=== PATIENT | female | born 1970 | race African-American/Black ===

== ENCOUNTER 2019-02-11 22:14 | Emergency (ER) | payer BC ==
[~2019-02-11] VITALS: Ht 175.3 cm; Wt 110.0 kg
[~2019-02-11 22:14] MED LIST: AMOXICILLIN500 MG PO; HYDROCHLOROT25 MG OR; HYZAAR1 TAB PO; LORTAB 5 OR; MEDDOSEPAK PO; NORVASC10 MG OR; OMEPRAZOLE20 M2 PO; ROBITUSSIN AC10 ML PO; SIMVASTATIN40 MG PO; TRAMADOL HCL50 MG PO; WELLBUTRIN150 MG OR
[2019-02-11] MEDS ORDERED: STERAPRED DS10 MG PO (23:02)
[2019-02-11 23:10] VITALS: BP 134/96
== END 2019-02-11 23:20 | disposition home or self-care (01) | DRG 156 ==
LOC: ED 22:14
DX: H92.02 Otalgia, left ear (principal); J02.9 Acute pharyngitis, unspecified; I10 Essential (primary) hypertension

== ENCOUNTER 2020-02-18 15:59 | Inpatient (IN) | payer BC ==
[~2020-02-18] VITALS: Ht 175.3 cm; Wt 137.4 kg
[~2020-02-18 15:59] MED LIST changes: +STERAPRED DS10 MG PO
--- NOTE | 2020-02-18 15:59 | NUR ---
PATIENT TO ROOM 15 FOR BEDSIDE TRIEAGE AND PHYSICIAN AT BEDSIDE
--- NOTE | 2020-02-18 16:30 | NUR ---
PT RESTING ON STRETCHER; SHALLOW LABORED BREATHING NOTED; O2 NC IN PLACE; PT ADVISED OF POC; PT VERBALIZES UNDERSTANDING; DENIES ANY OTHER NEEDS AT THIS TIME
[2020-02-18 17:23] LABS: HEMATOCRIT 42.4 % (37.0-47.0); HEMOGLOBIN 12.7 g/dl (12.0-16.0); IMMATURE GRANULOCYTES 0.5 % (0.0-5.0); MEAN CELL VOLUME 86.9 fL CALC (80.0-100.0); NEUT# 3.77 thou/uL (2.00-7.15); RED BLOOD COUNT 4.88 mill/uL (4.20-5.60); RED CELL DISTRI WIDTH 13.8 % (11.5-15.5)
--- NOTE | 2020-02-18 17:30 | NUR ---
PT RESTING ON STRETCHER; NO S/S OF DISTRESS NOTED; IV ANTIBIOTICS INFUSING; DRY COUGH NOTED; PT DENIES ANY NEEDS AT THIS TIME; WILL CONTINUE TO MONITOR
[2020-02-18 17:32] LABS: HCG SERUM/URINE (NEG/POS) NEGATIVE (NEGATIVE)
[2020-02-18 17:34] LABS: ALBUMIN 4.1 g/dL (3.2-5.0); ALKALINE PHOSPHATASE 58 u/l (38-126); ANION GAP 12 (6-22 (CALC)); BILIRUBIN, TOTAL 0.6 mg/dL (0.0-1.4); BUN 19 mg/dL (7-17); BUN/CREATININE RATIO 15 (12-20 (CALC)); C-REACTIVE PROTEIN 7.1 mg/dL (0-0.9); CARBON DIOXIDE 31 mmol/l (22-30); CHLORIDE 92 mmol/l (95-108); CREATININE 1.3 mg/dL (0.5-1.0); GFR 43 ML/MIN (>=60 (CALC)); GFR FOR AFR.AMER. 52 ML/MIN (>=60 (CALC)); LIPASE 104 u/l (23-300); SGOT/AST 42 u/l (14-36); TOTAL PROTEIN 8.4 g/dL (6.3-8.2)
[2020-02-18 17:40] LABS: SODIUM 131 mmol/l (137-146)
--- NOTE | 2020-02-18 18:30 | NUR ---
PT C/O CONTINUED COUGH AND REQUESTING SOMETHING TO HELP; MD NOTIFIED ; VSS; WILL CONTINUE TO MONITOR
--- NOTE | 2020-02-18 19:00 | NUR ---
REPORT TO SHADI YEAGER
--- NOTE | 2020-02-18 21:50 | NUR ---
PT ADVISED OF BEING AN ER HOLD. PT NOT HAPPY. ADVISED THAT WE WOULD BE BRINGING DOWN A HOSPITAL BE. RESTING. NAD.
--- NOTE | 2020-02-18 22:18 | NUR ---
DR LOUISE NOTIFIED OF REQUEST FOR COUGH MEDICATION. HOSPITAL BED BROUGHT DOWN FROM UPSTAIRS FOR PT COMFORT.
--- NOTE | 2020-02-18 23:10 | NUR ---
PT WAS MEDICATED WITH COUGH SYRUP/TYELNOL. GIVEN GINGERALE/WATER. LIGHTS DIMMED/IVF UP. CM/PULSE OX/NIBP. BLANKETS AND TWO PILLOWS GIVEN.
--- NOTE | 2020-02-19 01:09 | NUR ---
PT RESTING. UP TO BSC TO VOID. NAD.
--- NOTE | 2020-02-19 01:33 | NUR ---
PT UP TO BSC TO VOID. GOWN AND PILLOW CASES CHANGED DO TO SWEAT.
--- NOTE | 2020-02-19 03:23 | NUR ---
PT SLEEPING. FEELS MUCH BETTER. "BEST SLEEP I GOT IN YEARS." VSS.
--- NOTE | 2020-02-19 04:57 | NUR ---
PT UP TO BSC. COUGHING SPELL. ASSISTED WITH GOWN AND PILLOW CASE CHANGES PT SWEAT THROUGH AGAIN. PT GIVEN COUGH MED. CRANBERRY JUICE.
[2020-02-19 05:26] LABS: URINE BILIRUBIN - DIPSTICK NEGATIVE (NEGATIVE); URINE BLOOD DIPSTICK NEGATIVE (NEGATIVE); URINE COLOR YELLOW; URINE GLUCOSE - DIPSTICK NEGATIVE (NEGATIVE); URINE KETONE NEGATIVE (NEGATIVE); URINE LEUK ESTERASE NEGATIVE (NEGATIVE); URINE NITRITE - DIPSTICK NEGATIVE (Negative); URINE PROTEIN - DIPSTICK 100 mg/dL (NEG-TRACE); URINE SPECIFIC GRAVITY 1.015
--- NOTE | 2020-02-19 05:30 | NUR ---
PT SLEEPING. NO COUGHING. RESP EASY REG. VSS.
[2020-02-19 05:33] LABS: URINE BACTERIA MODERATE hpf; URINE EPITHELIAL CELLS FEW EPI/hpf (0-FEW)
[2020-02-19 05:45] LABS: HEMATOCRIT 40.4 % (37.0-47.0); HEMOGLOBIN 12.2 g/dl (12.0-16.0); IMMATURE GRANULOCYTES 0.6 % (0.0-5.0); MEAN CELL VOLUME 86.9 fL CALC (80.0-100.0); MEAN CORPUSCULAR HGB 26.2 pG CALC (26.0-32.0); MEAN CORPUSCULAR HGB CONC 30.2 g/dL CAL (32.0-36.0); NEUT# 3.34 thou/uL (2.00-7.15); RED BLOOD COUNT 4.65 mill/uL (4.20-5.60); RED CELL DISTRI WIDTH 14.2 % (11.5-15.5)
[2020-02-19 05:58] LABS: ALBUMIN 3.4 g/dL (3.2-5.0); ALKALINE PHOSPHATASE 52 u/l (38-126); ANION GAP 10 (6-22 (CALC)); BILIRUBIN, TOTAL 0.5 mg/dL (0.0-1.4); BUN 18 mg/dL (7-17); BUN/CREATININE RATIO 17 (12-20 (CALC)); C-REACTIVE PROTEIN 6.4 mg/dL (0-0.9); CARBON DIOXIDE 31 mmol/l (22-30); CHLORIDE 97 mmol/l (95-108); CREATININE 1.1 mg/dL (0.5-1.0); GFR 53 ML/MIN (>=60 (CALC)); GFR FOR AFR.AMER. > 60 ML/MIN (>=60 (CALC)); POTASSIUM 4.4 mmol/l (3.5-5.1); SGOT/AST 32 u/l (14-36); SODIUM 133 mmol/l (137-146); TOTAL PROTEIN 6.9 g/dL (6.3-8.2)
--- NOTE | 2020-02-19 06:58 | NUR ---
REPORT TO SHADI CLEVELAND.
--- NOTE | 2020-02-19 07:06 | NUR ---
REPORT TO SHADI VILLA
[2020-02-19 07:29] VITALS: BP 111/79
--- NOTE | 2020-02-19 07:36 | NUR ---
The patient is resting at this time. I updated her about the room status. I informed her that breakfast would be coming. She sts that she did not need anything at this time.
--- NOTE | 2020-02-19 08:44 | NUR ---
The patient ate breakfast. no issues at this time.
--- NOTE | 2020-02-19 09:41 | NUR ---
PATIENT READY TO BE TRANSFERRED TO [facility], WAITING FOR JUSTINO TO GIVE REPORT TO.
--- NOTE | 2020-02-19 10:02 | NUR ---
PT ARRIVED FROM ER VIA WC WITH STAFF. O2 IN PLACE. IV SITE IS FREE FROM REDNESS OR EDEMA. TELE MONITOR IN PLACE. CONTINUE TO OBSERVE AND MONITOR.
[2020-02-19 10:33] VITALS: BP 124/82
--- NOTE | 2020-02-19 12:50 | NUR ---
PT IS RELAXING IN THE ROOM. IV SITE IS FREE FROM REDNESS OR EDEMA.
[2020-02-19 15:21] VITALS: BP 114/66
--- NOTE | 2020-02-19 16:40 | NUR ---
PT IS RELAXING IN BED WITH NO DISTRESS NOTED. IV SITE IS FREE FROM REDNESS OR EDEAM. CONITNUE TO OBSERVE AND MONITOR.
--- NOTE | 2020-02-19 16:41 | NUR ---
PTS C PAP HAS ARRIVED. WILL BE IN HER ROOM. FROM FAMILY.
--- NOTE | 2020-02-19 19:00 | NUR ---
RECEIVED REPORT FROM NURSE BADILLO PATIENT RESTING IN BED WATCHING TV, HOOKED TO O2 @ 2LPM VIA NC CALL LIGHT AT REACH.
[2020-02-19 19:30] VITALS: BP 112/81
--- NOTE | 2020-02-19 21:00 | NUR ---
PATIENT ALERT ORIENTED ABLE TO MAKE NEEDS KNOWN, WITH AN ONGOING IV NS @ 100CC/HR INFUSING WELL ON LFA REMAINS ON TELE SR 73, DENIES PAIN, C/O OF COUGH NON PRODUCTIVE, CALL LIGHT AT REACH.
[2020-02-19 23:30] VITALS: BP 115/75
--- NOTE | 2020-02-20 | NUR ---
PATIENT APPEARS TO BE SLEEPING WITH EYES CLOSED WEARING CPAP BREATHING UNLABORED, CALL LIGHT AT REACH.
[2020-02-20 03:30] VITALS: BP 110/77
--- NOTE | 2020-02-20 04:45 | NUR ---
PATIENT ASLEEP AT THIS TIME, WEARS CPAP, BREATHING UNLABORED, CALL LIGHT AT REACH.
[2020-02-20 05:51] LABS: HEMOGLOBIN 11.2 g/dl (12.0-16.0); MEAN CELL VOLUME 89.4 fL CALC (80.0-100.0); MEAN CORPUSCULAR HGB 27.1 pG CALC (26.0-32.0); MEAN CORPUSCULAR HGB CONC 30.3 g/dL CAL (32.0-36.0); RED BLOOD COUNT 4.14 mill/uL (4.20-5.60); RED CELL DISTRI WIDTH 14.1 % (11.5-15.5)
[2020-02-20 06:16] LABS: ANION GAP 9 (6-22 (CALC)); BUN 15 mg/dL (7-17); BUN/CREATININE RATIO 18 (12-20 (CALC)); CARBON DIOXIDE 28 mmol/l (22-30); CHLORIDE 101 mmol/l (95-108); CREATININE 0.9 mg/dL (0.5-1.0); GFR > 60 ML/MIN (>=60 (CALC)); GFR FOR AFR.AMER. > 60 ML/MIN (>=60 (CALC)); MAGNESIUM 2.2 mg/dL (1.6-2.3); POTASSIUM 4.6 mmol/l (3.5-5.1); SODIUM 134 mmol/l (137-146)
[2020-02-20 08:37] VITALS: BP 107/77
--- NOTE | 2020-02-20 08:37 | NUR ---
RECIEVED REPORT FROM SHADI HODGE. PT RESTING IN SEMI FOWLERS POSITION UPON ENTERING ROOM. INTRODUCED SELF TO PT AND DISCUSSED POC. ASSESSMENT AND VITALS COMPLETED AT THIS TIME. BP 107/77, HR 75, O2 97% ON ROOM AIR. RESPIRATIONS ARE EVEN AND UNLABORED. LUNG SOUNDS ARE CLEAR. PT PRESENT WITH NON PRODUCTIVE COOUGH, ROBTIUSSIN TO BE ADMINISTERED. HEART RHYTHM IS NORMAL WITH TELE IN PLACE.BOWEL SOUNDS ARE ACTIVE IN ALL QUDRANTS WITH NO TENDERNESS, LAST REPORTED BM 02/18/20. RADIAL AND PEDAL PULSES ARE STRONG WITH NORMAL CAPILLARY REFILL. #22 IN LFA RUNNING WITH FLUIDS @100 ML ORDERED, SITE APPEARS HEALTHY AND PATENT. PT DENIES OF ANY PAIN OR DISCOMFORTS AT THIS TIME. ALL SAFTEY PRECAUTIONS ARE IN PLACE WITH CALL LIGTH IN REACH. WILL CONTINUE TO MONITOR.
[2020-02-20 12:00] VITALS: BP 100/73
--- NOTE | 2020-02-20 12:48 | NUR ---
PT SLEEPING IN LOWERS POSITION. RESPIRATIONS ARE EVEN AND UNLABORED WITH NO SIGNS OF DISTRESS.NO SIGNS FO ANY PAIN OR NEEDS AT THSI TIME.A L SAFETY PRECAUTIONS ARE IN PLACE WITH CALL LIGTH INREACH. WILL CONTINUE TO MONITOR
--- NOTE | 2020-02-20 16:02 | NUR ---
PT RESTING IN HIGH FOWLERS POSITION WATCHING TV. RESPIRATIONS ARE EVEN AND UNLABORED WITH NO SIGNS OF DISTRESS. PT DENIES ANY PAIN OR DISCOMFORTS AT THIS. ALL SAFTEY RPECAUTIONS ARE IN PLACE WITH CALL LIGHT IN REACH.
--- NOTE | 2020-02-20 19:06 | NUR ---
REPORT FROM GONZALO KEY. PT NOTED RESTING IN BED. NO APPARENT DISTRESS NOTED. IV SITE APPEARS HEALTHY. PT DENIES ANY PAIN OR DISCOMFORT. NO APPARENT RESPIRATORY DISTRESS NOTED, ON RA HAS O2 PRN AT BEDSIDE. ENERGY DERIVATIVES TRADER IN PLACE. DISCUSSED POC. PT VERBALIZED UNDERSTANDING. CALL LIGHT WITHIN REACH. WILL CONTINUE TO MONITOR.
--- NOTE | 2020-02-20 23:18 | NUR ---
COUGH MEDICINE ADMINISTERED. PT DENIES ANY OTHER WANTS OR NEEDS. PT SELF APPLIED HOME CPAP MACHINE. CALL LIGHT WITHIN REACH. WILL CONTINUE TO MONITOR.
[2020-02-21] VITALS (7 sets, daily range): BP systolic 97–120; BP diastolic 52–77
--- NOTE | 2020-02-21 03:11 | NUR ---
PT RESTING IN BED WITH EYES CLOSED. NO APPARENT DISTRESS NOTED. RESPIRATIONS EVEN AND UNLABORED, PT WEARING HOME CPAP MACHINE. ELEMENT WINDING MACHINE TENDER IN PLACE. IV SITES APPEAR HEALTHY. CALL LIGHT WITHIN REACH. WILL CONTINUE TO MONITOR.
[2020-02-21 05:37] LABS: HEMATOCRIT 35.8 % (37.0-47.0); IMMATURE GRANULOCYTES 0.9 % (0.0-5.0); MEAN CELL VOLUME 89.5 fL CALC (80.0-100.0); MEAN CORPUSCULAR HGB 27.5 pG CALC (26.0-32.0); MEAN CORPUSCULAR HGB CONC 30.7 g/dL CAL (32.0-36.0); NEUT# 2.89 thou/uL (2.00-7.15); RED CELL DISTRI WIDTH 14.2 % (11.5-15.5)
[2020-02-21 06:10] LABS: ALBUMIN 3.1 g/dL (3.2-5.0); ALKALINE PHOSPHATASE 48 u/l (38-126); ANION GAP 9 (6-22 (CALC)); BILIRUBIN, TOTAL 0.3 mg/dL (0.0-1.4); BUN 16 mg/dL (7-17); BUN/CREATININE RATIO 17 (12-20 (CALC)); C-REACTIVE PROTEIN 2.7 mg/dL (0-0.9); CARBON DIOXIDE 28 mmol/l (22-30); CHLORIDE 101 mmol/l (95-108); CREATININE 0.9 mg/dL (0.5-1.0); GFR > 60 ML/MIN (>=60 (CALC)); GFR FOR AFR.AMER. > 60 ML/MIN (>=60 (CALC)); POTASSIUM 4.4 mmol/l (3.5-5.1); SGOT/AST 26 u/l (14-36); SODIUM 134 mmol/l (137-146); TOTAL PROTEIN 6.5 g/dL (6.3-8.2)
--- NOTE | 2020-02-21 07:44 | NUR ---
PT SITTING IN BED. A&O X3. NO DISTRESS NOTED. PT REPORTS TO BE FEELING WEAK WHEN SHE ATTEMPTS TO AMBULATE TO THE BATHROOM. COUGH NOTED. O2 VIA 2L NC @ BEDSIDE IF NEEDED. PT CURRENTLY ON RA. NO OTHER NEEDS AT THIS TIME. PT ENCOURAGED TO EAT DUE TO POOR INTAKE. ASSESSMENT COMPLETED. DISCUSSED POC. ISOLATION PRECAUTIONS IN PLACE. CALL LIGHT IN REACH. CONTINUE TO MONITOR.
--- NOTE | 2020-02-21 12:52 | NUR ---
PT SITTING IN BED WATCHING TV. NO DISTRESS OR NEEDS AT THIS TIME. CALL LIGHT IN REACH. CONTINUE TO MONITOR.
--- NOTE | 2020-02-21 19:02 | NUR ---
REPORT FROM ARSENIO KEY. PT NOTED RESTING IN BED. NO APPARENT DISTRESS NOTED. IV SITE APPEARS HEALTHY. PT DENIES ANY PAIN OR DISCOMFORT. NO APPARENT RESPIRATORY DISTRESS NOTED, ON RA HAS O2 PRN AT BEDSIDE. CLIENT DELIVERY SPECIALIST IN PLACE. DISCUSSED POC. PT VERBALIZED UNDERSTANDING. CALL LIGHT WITHIN REACH. WILL CONTINUE TO MONITOR.
--- NOTE | 2020-02-21 22:17 | NUR ---
IV ABT INFUSION COMPLETE. IV SITE FLUSHED AND SL. COUGH MEDICINE ADMINISTERED AT THIS TIME. PT DENIES ANY CURRENT WANTS OR NEEDS. PT APPLIED HOME CPAP MACHINE. CALL LIGHT WITHIN REACH. WILL CONTINUE TO MONITOR.
--- NOTE | 2020-02-22 00:02 | NUR ---
PT RESTING IN BED WITH EYES CLOSED. HOME CPAP MACHINE ON. NO APPARENT DISTRESS NOTED. NO CURRENT WANTS OR NEEDS. VSS. CALL LIGHT WITHIN REACH. WILL CONTINUE TO MONITOR.
[2020-02-22 04:18] VITALS: BP 118/79
[2020-02-22 07:52] VITALS: BP 96/65
--- NOTE | 2020-02-22 07:52 | NUR ---
PT SITTING IN BED. A&O X3. NO DISTRESS NOTED. PT CURRENTLY ON RA. REPORTS TO BE FEELING BETTER TODAY. NO OTHER NEEDS AT THIS TIME. ASSESSMENT COMPLETED. DISCUSSED POC. ISOLATION PRECUATIONS IN PLACE. CALL LIGHT IN REACH. CONTINUE TO MONITOR.
[2020-02-22 10:00] VITALS: BP 109/73
--- NOTE | 2020-02-22 11:22 | NUR ---
PT AMBULATING ROOM WITH O2 @ 93% ROOM AIR. RESULTS COMMUNICATED WITH ESTELA
--- NOTE | 2020-02-22 12:35 | NUR ---
PT SITTING IN BED WATCHING TV. NO DISTRESS OR NEEDS AT THIS TIME. CALL LIGHT IN REACH. CONTINUE TO MONITOR.
[2020-02-22 15:00] VITALS: BP 116/73
--- NOTE | 2020-02-22 17:52 | NUR ---
PT SITTING IN BED. NO DISTRESS OR NEEDS AT THIS TIME. CALL LIGHT IN REACH. COTNINUE TO MONITOR.
[2020-02-22 19:15] VITALS: BP 109/62
--- NOTE | 2020-02-22 20:02 | NUR ---
REPORT FROM ARSENIO KEY. PT NOTED RESTING IN BED. NO APPARENT DISTRESS NOTED. IV SITE APPEARS HEALTHY. PT DENIES ANY PAIN OR DISCOMFORT. NO APPARENT RESPIRATORY DISTRESS NOTED OVERSEER KOSHER KITCHEN IN PLACE. DISCUSSED POC. PT VERBALIZED UNDERSTANDING. CALL LIGHT WITHIN REACH. WILL CONTINUE TO MONITOR.
[2020-02-23 00:24] VITALS: BP 108/66
--- NOTE | 2020-02-23 00:33 | NUR ---
PT RESTING IN BED. NO APPARENT DISTRESS NOTED. ALERT AND ORIENTED X3. PT DENIES ANY PAIN OR DISCOMFORT. CALL LIGHT WITHIN REACH. WILL CONTINUE TO MONITOR.
--- NOTE | 2020-02-23 04:17 | NUR ---
PT RESTING IN BED WITH EYES CLOSED. NO APPARENT DISTRESS NOTED. RESPIRATIONS EVEN AND UNLABORED. CALL LIGHT WITHIN REACH. WILL CONTINUE TO MONITOR.
[2020-02-23 04:31] VITALS: BP 114/65
[2020-02-23 08:13] VITALS: BP 124/77
--- NOTE | 2020-02-23 08:13 | NUR ---
PT SITTING IN BED WATCHING TV. A&O X3. NO DISTRESS NOTED. PT REPORTS TO BE FEELING A LITTLE BETTER THAN YESTERDAY. PT CURRENTLY ON RA. NO OTHER NEEDS AT THIS TIME. ASSESSMENT COMPLETED. DISCUSSED POC. ISOLATION PRECAUTIONS IN PLACE. CALL LIGHT IN REACH. CONTINUE TO MONITOR.
[2020-02-23 10:30] VITALS: BP 98/63
[2020-02-23 10:50] LABS: HEMATOCRIT 37.1 % (37.0-47.0); HEMOGLOBIN 11.2 g/dl (12.0-16.0); IMMATURE GRANULOCYTES 1.8 % (0.0-5.0); MEAN CELL VOLUME 89.6 fL CALC (80.0-100.0); MEAN CORPUSCULAR HGB 27.1 pG CALC (26.0-32.0); MEAN CORPUSCULAR HGB CONC 30.2 g/dL CAL (32.0-36.0); NEUT# 5.18 thou/uL (2.00-7.15); RED BLOOD COUNT 4.14 mill/uL (4.20-5.60); RED CELL DISTRI WIDTH 14.1 % (11.5-15.5)
[2020-02-23 11:25] LABS: ALBUMIN 3.3 g/dL (3.2-5.0); ALKALINE PHOSPHATASE 47 u/l (38-126); ANION GAP 7 (6-22 (CALC)); BILIRUBIN, TOTAL 0.3 mg/dL (0.0-1.4); BUN 18 mg/dL (7-17); BUN/CREATININE RATIO 19 (12-20 (CALC)); C-REACTIVE PROTEIN 0.9 mg/dL (0-0.9); CARBON DIOXIDE 30 mmol/l (22-30); CHLORIDE 102 mmol/l (95-108); CREATININE 0.9 mg/dL (0.5-1.0); GFR > 60 ML/MIN (>=60 (CALC)); GFR FOR AFR.AMER. > 60 ML/MIN (>=60 (CALC)); POTASSIUM 4.2 mmol/l (3.5-5.1); SGOT/AST 45 u/l (14-36); SODIUM 135 mmol/l (137-146); TOTAL PROTEIN 6.7 g/dL (6.3-8.2)
--- NOTE | 2020-02-23 12:22 | NUR ---
PT SITTING IN BED. NO DISTRESS OR NEEDS AT THIS TIME. CALL LIGHT IN REACH. CONTINUE TO MONITOR.
[2020-02-23 15:00] VITALS: BP 110/70
--- NOTE | 2020-02-23 17:38 | NUR ---
PT SITTING IN BED. NO DISTRESS OR NEEDS AT THIS TIME. CALL LIGHT IN REACH. CONTINUE TO MONITOR.
--- NOTE | 2020-02-23 19:18 | NUR ---
1918-Pt assessment completed. Pt is very pleasant but has voiced concerns about life after discharge. I assured her I would put her concerns in my notes for the doctor to read. She says her cough is dry at times. But states her SOB is getting better. Bed low and locked. Call light and phone within reach. Pt stable. Will continue to monitor.
[2020-02-23 19:19] VITALS: BP 119/70
--- NOTE | 2020-02-23 23:18 | NUR ---
2318-Assisted pt with CPAP machine, cleaned it and placed water pt brought from home in it. Pt denies pain or discomfort. No s/s of distress. Bed low and locked. Call light and phone within reach. Pt stable. Will continue to monitor.
[2020-02-24] VITALS (7 sets, daily range): BP systolic 96–123; BP diastolic 62–77
--- NOTE | 2020-02-24 03:10 | NUR ---
0310-Pt lying in bed, asleep. No s/s of distress. Bed low and locked. Call light and phone within reach. Pt stable. Will continue to monitor.
--- NOTE | 2020-02-24 08:15 | NUR ---
ASSESSMENT IS COMPLTED: IV SITE IS FREE FROM REDNESS OR EDEMA. HR IS REG,PULSES ARE STRONG X4, ABD IS SOFT WITH ACTIVE BS. BREATH SOUNDS ARE CLEAR,TELE MONITOR IN PLACE. CONTINUE TO OBSERVE AND MONITOR.
--- NOTE | 2020-02-24 12:45 | NUR ---
PT IS SITTING IN THE CHAIR AND ON THE SIDE OF THE BED. HAD A SHOWER. NO DISTRESS NOTED. IV SITE IS FREE FROM REDNESS OR EDEMA.
--- NOTE | 2020-02-24 16:30 | NUR ---
PT IS RELAXING IN BED WITH NO DISTRESS NOTED. IV SITE IS FREE FROM REDNESS OR EDEMA.
--- NOTE | 2020-02-24 19:00 | NUR ---
RECEIVE REPORT FROM NURSE BADILLO PATIENT RESTING IN BED, HIGH FOWLERS BREATHING SHALLOW UNLABORED CALL LIGHT AT REACH.
--- NOTE | 2020-02-24 20:34 | NUR ---
PATIENT ALERT ORIENETED ABLE TO MAKE NEEDS KNONW, WITH SALINE LOCK ON LAC G20 PATENT FLUSHES WELL REMAINJS ON TELE LBM 8/, DENIES PAIN OR DISCOMFORTS, OCCASIONAL NON PRODUCTIVE COUGH PER PATEINT, LUNG SOUNDS DIMINISHED BOTH LUNG RUST, CALL LIGHT AT REACH.
--- NOTE | 2020-02-25 | NUR ---
PATIENT CURRENTLY WATCHING TV, BREATHING SHALLOW UNLABORED, NOT IN DISTRESS CALL LIGHT AT REACH.
[2020-02-25 02:45] VITALS: BP 114/68
--- NOTE | 2020-02-25 04:33 | NUR ---
PATIENT RESTING IN BED, EASY TO AROUSED, DENIES PAIN DISCOMFORTS BREATHING SHALLOW UNLABORED, CALL LIGHT AT REACH.
--- NOTE | 2020-02-25 07:10 | NUR ---
REPORT RECEIVED FROM SHADI LACY
--- NOTE | 2020-02-25 08:35 | NUR ---
AT BEDSIDE DISCUSSING POC.
[2020-02-25 08:44] VITALS: BP 116/85
--- NOTE | 2020-02-25 08:45 | NUR ---
PT RESTING IN SEMI FOWLERS POSITION EATING BREAKFAST,A&O X3;VS OBTAINED AND ASSESSMENT COMPLETED;PT DENIES ANY CURRENT PAIN OR DISCOMFORTS,PAIN SCALE AND REPORTING EDUCATED;RESPIRATIONS EVEN AND UNLABORED ON RA,DIMINISHED LUNG SOUNDS;NON-PRODUCTIVE COUGH NOTED AT TIMES;ABDOMEN DISTENDED/SOFT ON PALPATION AND ACTIVE IN ALL 4 QUADRANTS;STRONG PEDAL PULSES;SKIN INTACT;TELE MONITORING IN PLACE;#20G TO LAC FLUSHED AND PATENT,SITE APPEARS HEALTHY;PT DENIES ANY ADDITIONAL NEEDS AT THIS TIME AND IS ENCOURAGED TO CALL FOR ASSISTANCE IF NEEDED;FALL PRECAUTIONS IN PLACE WITH CALL LIGHT IN REACH;WILL CONTINUE TO MONITOR
[2020-02-25] MEDS ORDERED: DECADRON2 MG PO (08:46)
[2020-02-25] MEDS ORDERED: GUAIFENESI100 MG/51 PO (08:47)
[2020-02-25] MEDS ORDERED: ZITHROMAX250 MG PO (08:47)
--- NOTE | 2020-02-25 10:20 | NUR ---
PT OXYGEN QUALIFIACTION TEST OBTAINED AT THIS TIME;PT OXYGEN SAT PRIOR TO AMBULATION 97% ON RA, WHILE AMBULATING TO O2 SATS DROPPED TO 83% ON RA AND LABORED BREATHING NOTED; O2 REAPPLIED AND O2 AT REST ON 2L VIA NC 97%;PT REPOSITIONED IN BED FOR COMFORT;ENCOURAGED TO CALL FOR ASSISTANCE IF NEEDED;CALL LIGHT IN REACH;WILL CONTINUE TO MONITOR
--- NOTE | 2020-02-25 11:15 | NUR ---
PT RESTING IN SEMI FOWLERS POSITION;RESPIRATIONS EVEN AND UNLABORED ON O2 @ 2L VIA NC;PT DENIES ANY CURRENT PAIN OR NEEDS;TELE MONITORING IN PLACE;IV SITE PATENT;PT AWARE OF PENDING D/C ORDERS, WAITING FOR HOME OXYGEN TO BE DELIVERED FOR D/C HOME, PT VERBALIZES UNDERSTANDING;PT ENCOURAGED TO CALL FOR ASSISTANCE IF NEEDED;CALL LIGHT IN REACH;WILL CONTINUE TO MONITOR
[2020-02-25 11:23] VITALS: BP 104/71
--- NOTE | 2020-02-25 15:40 | NUR ---
PT RESTING IN SEMI FOWLERS POSITION;RESPIRATIONS REMAIN EVEN AND UNLABORED ON RA, SOB NOTED ON EXCERTION;PT DENIES ANY CURRENT PAIN OR NEEDS;TELE MONITORING IN PLACE;IV SITE PATENT;STILL AWAITING INFORMATION REGARDING HOME OXYGEN FOR PT D/C HOME,PT VERBALIZES UNDERSTANDING;PT DENIES ANY ADDITIONAL NEEDS AT THIS TIME AND IS ENCOURAGED TO CALL FOR ASSISTANCE IF NEEDED;CALL LIGHT IN REACH;WILL CONTINUE TO MONITOR
[2020-02-25 15:52] VITALS: BP 123/62
--- NOTE | 2020-02-25 19:13 | NUR ---
SPOKE TO [employer] [facility]GEN [employer] SPOKE TO [facility], STATED THAT WILL DELIVER PORTABLE OXYGEN TODAY.
--- NOTE | 2020-02-25 19:30 | NUR ---
RECEIVED REPORT FROM NURSE DEL CASTILLO PATIENT SITTING IN BED, WATCHING TV, DENIES PAIN AND DISCOMFORT. pATIENT ALSO INFORMED THAT [employer] CONTACTED [facility] AND WAITING FOR THE PORTABLE OXYGEN TO BE DELIVERED PRIOR TO DISCHARGE.
[2020-02-25 19:45] VITALS: BP 115/60
--- NOTE | 2020-02-25 20:30 | NUR ---
PATIENT ALERT ORIENTED, ABLE TO MAKE NEEDS KNOWN, WITH SALINE LOCK ON LAC G20 PATENT FLUSHES WEEL, REMAINS ON TELE SR 70, LBM 8/3, DENIES PAIN, BREATHING SHALLOW UNLABORED, CALL LIGHT AT REACH.
--- NOTE | 2020-02-26 00:19 | NUR ---
PATIENT STILL AWAKE AT THIS TIME, WATCHING TV, NO DISCOMFORTS NOTED, NOT IN DISTRESS CALL LIGHT AT [facility].
[2020-02-26 04:00] VITALS: BP 116/75
--- NOTE | 2020-02-26 04:00 | NUR ---
PATIENT ASLEEP AT THIS TIME, NOT IN DISTRESS CALL LIGHT AT REACH.
--- NOTE | 2020-02-26 07:10 | NUR ---
REPORT RECEIVED FROM SHADI LACY
--- NOTE | 2020-02-26 08:30 | NUR ---
PT RESTING IN SEMI FOWLERS POSITION,A&O X3;VS OBTAINED AND ASSESSMENT COMPLETED;PT DENIES ANY CURRENT PAIN OR DISCOMFORTS,PAIN SCALE AND REPORTING EDUCATED;RESPIRATIONS EVEN AND UNLABORED,SHALLOW ON O2 @ 2L VIA NC;ABDOMEN SOFT ON PALPATION AND ACTIVE IN ALL 4 QUADRANTS;STRONG PEDAL PULSES;SKIN INTACT;#20G TO LAC FLUSHED AND PATENT,SITE APPEARS HEALTHY;PT WAS SUPPOSED TO BE D/C YESTERDAY 02/25/20 BUT HOME OXYGEN WAS NEVER DELIVERED, PT NOTIFIED THAT CASE MANAGEMENT WAS WORKING ON RECEIVING OXYGEN TODAY FOR PT;PT VERBALIZES UNDERSTANDING;PT DENIES ANY ADDITIONAL NEEDS AT THIS TIME TIME;PT REMAINS IN AIR/CONTACT PRECAUTIONS DUE TO COVID19 DX;ENCOURAGED TO CALL FOR ASSISTANCE IF NEEDED;CALL LIGHT IN REACH;WILL CONTINUE TO MONITOR
[2020-02-26 08:31] VITALS: BP 111/66
--- NOTE | 2020-02-26 08:42 | NUR ---
AT BEDSIDE DISCUSSING POC.
--- NOTE | 2020-02-26 11:32 | NUR ---
PT RESTING IN SEMI FOWLERS POSITION;RESPIRATIONS REMAIN EVEN AND UNLABORED ON O2 @ 2L VIA NC;PT DENIES ANY CURRENT PAIN OR DISCOMFORTS;IV SITE PATENT;PT DENIES ANY ADDITIONAL NEEDS AT THIS TIME;PER CASE MANAGMENT HOME OXYGEN TO ARRIVE AT [facility] AT [address] FOR D/C HOME, PT NOTIFIED OF PLAN AND VERBALIZES UNDERSTANDING;ASSESSMENT REMAINS UNCHANGED AT THIS TIME;ENCOURAGED PT TO CALL FOR ASSISTANCE IF NEEDED;FALL PRECAUTIONS REMAIN IN PLACE WITH BED IN THE LOWEST POSITION AND CALL LIGHT IN REACH;WILL CONTINUE TO MONITOR
--- NOTE | 2020-02-26 12:45 | NUR ---
ALL DISCHARGE INSTRUCTIONS PROVIDED AT THIS TIME;PT INSTRUCTED ON RX SENT TO PHARMACY FOR DECADRON,ZITHRO AND ROBITUSSIN AND VERBALIZES UNDERSTANDING;PT ALSO INSTRUCTED TO SELF ISOLATE FOR 14 DAYS AFTER ONSET OF SYMPTOMS AND F/U WITH HER PCP FOR ADDITIONAL COVID19 TESTING;PORTABLE OXYGEN PROVIDED BY [facility] AND PT EDUCATED ON USAGE;IV SITE REMOVED WITH CATHETER INTACT;PER PT [facility] HOME OXYGEN DELIVERER CALLED HER AND TOLD HER " I DONT HAVE TIME TO WAIT FOR YOU TO ARRIVE TO THE HOUSE, ILL HAVE TO LEAVE IT WITH WHO IS ALREADY THERE", PT UPSET;I RE-ASSURED PT AND SPOKE WITH CASE MANAGMENT;PT REPORTS THAT DELIVERER WAS VERY RUDE TO HER ON THE PHONE AND WOULD NOT EVEN STAY TO EXPLAIN HER OXYGEN AT HOME;PT REQUEST TO GET A SHOWER AT THIS TIME;ENCOURAGED TO CALL FOR ASSISTANCE IF NEEDED;CALL LIGHT IN REACH;AWAITING FURTHER DIRECTIONS FROM CASE MANAGEMENT PRIOR TO D/C HOME;WILL CONTINUE TO MONITOR
--- NOTE | 2020-02-26 13:30 | NUR ---
SPOKE WITH PT INDEPTH ABOUT HOME OXYGEN AND PORTABLE, PT REPORTS THAT SHE DOES FEEL SAFE WITH GOING HOME. HOME OXYGEN WAS DELIVERED AND DISCUSSED WITH PT SON;WHEELCHAIR TO BE PROVIDED FOR D/C HOME;[facility] TO TRANSPORT PT HOME;WILL CONTINUE TO MONITOR
--- NOTE | 2020-02-26 13:53 | NUR ---
Discharge instructions given. Patient verbalizes understanding of same. Discharged in stable condition via Wheelchair to Home with *Other. All belongings sent with pt. PT TRANSPORTED TO [facility] IN STABLE CONDITION VIA WHEELCHAIR ACCOMPANIED BY BRIE WHITMORE. PORTABLE OXYGEN, D/C INTRCUTIONS AND RX LEFT WITH PT.
--- NOTE | 2020-03-05 13:37 | NUR ---
Pneumonia post discharge follow up call completed today, 03/05/20. Pt. states she is doing better, but still experiencing extreme fatigue No fever, chills, SOB,since coming home. Pt. states she has not had to use O2 at home. Pt obtained and took medication prescribed at discharge without issue. Follow up appt. with PCP is scheduled for Tuesday, 03/07. No needs or questions offered by patient.
== END 2020-02-26 13:53 | disposition home or self-care (01) | DRG 177 ==
LOC: ED 15:59 → ED-I 18:00 → ED 18:40 → ED-I 18:41 → MS2 02-19 09:29
PROVIDERS: Family Medicine; Nurse Practitioner; Nurse Practitioner Family; ADMIT Internal Medicine; ATTEND Internal Medicine
DX: U07.1 COVID-19 (principal); J12.89 Other viral pneumonia; J96.01 Acute respiratory failure with hypoxia; I10 Essential (primary) hypertension; E78.5 Hyperlipidemia, unspecified; R43.8 Other disturbances of smell and taste; K59.00 Constipation, unspecified
CPT/HCPCS: J1650

== ENCOUNTER 2021-01-08 09:06 | Day surgery (SDC) | payer BC ==
[~2021-01-08] VITALS: Ht 175.3 cm; Wt 144.2 kg
[~2021-01-08 09:06] MED LIST changes: +DECADRON2 MG PO; +GUAIFENESI100 MG/51 PO; +HYDROCHLOROT12.5 MG PO; +LEVOCETIRIZINE D5 MG PO; +LOSARTAN POTASS50 MG PO; +OMEPRAZOLE20 MG PO; +VENTOLIN HFA IN; +ZITHROMAX250 MG PO
[2021-01-08 11:01] VITALS: BP 130/79
== END 2021-01-08 10:55 | disposition home or self-care (01) | DRG 951 ==
LOC: ENDO 09:06 → ORM 11:20
PROVIDERS: ATTEND Surgery
PROC: 0DJD8ZZ Inspection of Lower Intestinal Tract, Via Natural or Artificial Opening Endoscopic (ICD-10-PCS; principal; 2021-01-08)
DX: Z12.11 Encounter for screening for malignant neoplasm of colon (principal); K64.8 Other hemorrhoids; I10 Essential (primary) hypertension; R13.10 Dysphagia, unspecified

== ENCOUNTER 2022-03-15 06:59 | Emergency (ER) | payer OTHER, BC ==
[~2022-03-15] VITALS: Ht 175.3 cm; Wt 125.0 kg
[2022-03-15 07:04] VITALS: BP 127/76
[2022-03-15 10:05] VITALS: BP 127/76
== END 2022-03-15 10:19 | disposition home or self-care (01) | DRG 605 ==
LOC: ED 06:59
DX: S60.222A Contusion of left hand, initial encounter (principal); S60.212A Contusion of left wrist, initial encounter; S80.12XA Contusion of left lower leg, initial encounter; E66.9 Obesity, unspecified; I10 Essential (primary) hypertension; V50.5XXA Driver of pick-up truck or van injured in collision with pedestrian or animal in traffic accident, initial encounter